=== PATIENT | female | born 1995 | race Caucasian/White ===

== ENCOUNTER 2020-11-14 11:14 | Emergency (ER) | payer OTHER ==
[2020-11-14 11:19] VITALS: TEMP 97.6; BMI 18.3
[2020-11-14] MEDS ORDERED: ONDANSETRON *ODT* 4 MG TABLET SL ONE (11:50)
[2020-11-14] MEDS ORDERED: ONDANSETRON *ODT* 4 MG TABLET ONE (11:59)
[2020-11-14] MEDS ORDERED: SODIUM CHLORIDE 1,000 ML IV STA (12:17)
[2020-11-14] MEDS ORDERED: ACETAMINOPHEN 1000 MG/100 ML VIAL (NON FORMULARY) IVPB ONE (12:17)
[2020-11-14] MEDS ORDERED: ACETAMINOPHEN INJECTION 100 ML IVPB ONE (12:20)
[2020-11-14 12:34] LABS: BASO % 0.3 % (0-2.0); EOS % 0.2 % (0-4.5); HEMATOCRIT 46.8 % (32.4-45.2); HEMOGLOBIN 15.9 GM/dL (10.7-15.3); LYMPH % 7.7 % (8-40); MCH 31.2 pg (25.7-33.7); MCHC 33.9 g/dl (32.0-36.0); MEAN CELL VOLUME 92.1 fl (80-96); MEAN PLT VOLUME 8.9 fl (7.5-11.1); MONO % 4.3 % (3.8-10.2); NEUT % 87.5 % (42.8-82.8); PLATELET COUNT 306 K/MM3 (134-434); RBC 5.08 M/mm3 (3.60-5.2); RDW 13.9 % (11.6-15.6); WHITE BLOOD COUNT 12.7 K/mm3 (4.0-10.0)
[2020-11-14 12:56] LABS: CALCIUM 11.4 mg/dL (8.5-10.1)
[2020-11-14 12:57] LABS: ALBUMIN 5.1 g/dl (3.4-5.0); BLOOD UREA NITROGEN 15.8 mg/dL (7-18); MAGNESIUM 2.2 mg/dL (1.8-2.4)
[2020-11-14 13:00] LABS: CREATININE 1.2 mg/dL (0.55-1.3)
[2020-11-14 13:01] LABS: BILIRUBIN,TOTAL 0.8 mg/dL (0.2-1)
[2020-11-14 13:02] LABS: TOT PROT 8.6 g/dl (6.4-8.2)
[2020-11-14 14:52] LABS: EPI CELLS >36 /uL (0-25.1); HYALINE CASTS 8 /uL (0-3.1); PH,URINE 6.5 (5.0-8.0); URINE APPEARANCE CLOUDY; URINE BACTERIA 1788 /uL (0-1359); URINE BILIRUBIN NEGATIVE (NEGATIVE); URINE COLOR DK YELLOW; URINE GLUCOSE (UA) NEGATIVE (NEGATIVE); URINE KETONE 2+ (NEGATIVE); URINE LEUK ESTERASE NEGATIVE (NEGATIVE); URINE NITRITE NEGATIVE (NEGATIVE); URINE PROTEIN 1+ (NEGATIVE); URINE WBC 54 /uL (0-25.8)
[2020-11-14 14:53] LABS: HCG,QUALITATIVE URINE Negative
[2020-11-14 15:15] VITALS: BP 134/76; PULSE 78
[2020-11-14 15:15] LABS: URINE RBC 26.5 /uL (0-23.9)
== END 2020-11-14 15:13 | disposition home or self-care (01) ==
LOC: JER 11:14
PROC: 3E0333Z Introduction of Anti-inflammatory into Peripheral Vein, Percutaneous Approach (ICD-10-PCS; principal; 2020-11-14)
PROC: 3E0337Z Introduction of Electrolytic and Water Balance Substance into Peripheral Vein, Percutaneous Approach (ICD-10-PCS; 2020-11-14)
DX: R11.2 Nausea with vomiting, unspecified (principal)
CPT/HCPCS: 36415; 80053; 81003; 83690; 83735; 84703; 85025; 87086; 99284-25; J0131; Q0162

== ENCOUNTER 2021-03-21 14:42 | Emergency (ER) | payer OTHER ==
[2021-03-21 14:57] VITALS: BP 114/69; PULSE 99; TEMP 97.6; BMI 18.3
[2021-03-21] MEDS ORDERED: IBUPROFEN 600 MG TABLET (FP) PO ONE ×2 (15:20→15:24)
== END 2021-03-21 17:08 | disposition home or self-care (01) ==
LOC: JERFT 14:42
DX: M79.641 Pain in right hand (principal)
CPT/HCPCS: 73110-TC-RT-FY; 73130-TC-RT-FY; 99283-25

== ENCOUNTER 2021-04-22 04:41 | Day surgery (SDC) | payer OTHER ==
[2021-04-18 13:35] VITALS: BMI 19.3
[2021-04-22] MEDS ORDERED: SUCCINYLCHOLINE CHLORIDE 200 MG/10 ML SYRINGE ONE (07:10)
[2021-04-22] MEDS ORDERED: MIDAZOLAM HCL 2 MG/2 ML SINGLE DOSE VIAL ONE (07:10)
[2021-04-22] MEDS ORDERED: PROPOFOL 20 ML ONE (07:10)
[2021-04-22] MEDS ORDERED: LIDOCAINE HCL 1%, 10 MG/ML (20ML VIAL) ONE ×2 (07:56→07:57)
[2021-04-22] MEDS ORDERED: BUPIVACAINE HCL/PF 0.5% (5MG/ML) 10 ML VIAL ONE (07:57)
[2021-04-22] MEDS ORDERED: BUPIVACAINE HCL/PF 0.25% (2.5MG/ML) 10 ML VIAL ONE (07:57)
[2021-04-22] MEDS ORDERED: ceFAZolin SODIUM 1 GM VIAL IVPB ONE (08:24)
[2021-04-22] MEDS ORDERED: ceFAZolin SODIUM 1 GM VIAL ONE (08:26)
[2021-04-22] MEDS ORDERED: DEXAMETHASONE SOD PHOSPHATE 4 MG/1 ML VIAL ONE (08:27)
[2021-04-22] MEDS ORDERED: ONDANSETRON 4 MG/2 ML VIAL ONE (08:27)
[2021-04-22] MEDS ORDERED: BUPIVACAINE HCL/PF 0.5% (5MG/ML) 10 ML VIAL IJ ONE (08:39)
[2021-04-22] MEDS ORDERED: LIDOCAINE HCL 1%, 10 MG/ML (20ML VIAL) NR ONE (08:39)
[2021-04-22] MEDS ORDERED: ONDANSETRON 4 MG/2 ML VIAL IVPUSH PRN (10:25)
[2021-04-22] MEDS ORDERED: oxyCODONE HCL 5 MG TABLET PO PRN ×2 (10:25)
[2021-04-22] MEDS ORDERED: LACTATED RINGERS SOLUTION 1,000 ML IV SCH (10:30)
[2021-04-22 11:30] VITALS: TEMP 96.4
[2021-04-22 13:19] VITALS: BP 115/52; PULSE 59
== END 2021-04-22 13:19 | disposition home or self-care (01) ==
LOC: JASU-SURG 04:41
PROVIDERS: ATTEND Orthopaedic Surgery
PROC: 0MQ70ZZ Repair Right Hand Bursa and Ligament, Open Approach (ICD-10-PCS; principal; 2021-04-22 08:00)
DX: S63.681A Other sprain of right thumb, initial encounter (principal); M25.641 Stiffness of right hand, not elsewhere classified; X58.XXXA Exposure to other specified factors, initial encounter; Y93.9 Activity, unspecified; Y92.9 Unspecified place or not applicable; Y99.9 Unspecified external cause status
CPT/HCPCS: 81025; 94760

== ENCOUNTER 2022-03-15 10:11 | Emergency (ER) | payer OTHER ==
[2022-03-15 10:17] VITALS: RESP 18; BMI 19.7
[2022-03-15 11:28] VITALS: BP 116/53; PULSE 60; TEMP 97.8
[2022-03-15 12:56] LABS: BASO % 0.5 % (0-2.0); EOS % 0.3 % (0-4.5); HEMATOCRIT 40.8 % (32.4-45.2); HEMOGLOBIN 13.7 GM/dL (10.7-15.3); LYMPH % 10.5 % (8-40); MCH 30.1 pg (25.7-33.7); MCHC 33.6 g/dl (32.0-36.0); MEAN CELL VOLUME 89.6 fl (80-96); MEAN PLT VOLUME 8.6 fl (7.5-11.1); NEUT % 81.7 % (42.8-82.8); PLATELET COUNT 229 10^3/uL (134-434); RBC 4.55 M/mm3 (3.60-5.2); RDW 13.4 % (11.6-15.6); WHITE BLOOD COUNT 11.1 K/mm3 (4.0-10.0)
[2022-03-15 13:07] LABS: CHLORIDE 109 mmol/L (98-107); SODIUM 140 mmol/L (136-145)
[2022-03-15 13:09] LABS: ANION GAP 5 MMOL/L (8-16); BLOOD UREA NITROGEN 15.3 mg/dL (7-18); CALCIUM 9.7 mg/dL (8.5-10.1); CO2 27 mmol/L (21-32); GLUCOSE,RANDOM 84 mg/dL (74-106)
[2022-03-15 13:10] LABS: ALBUMIN 4.1 g/dl (3.4-5.0)
[2022-03-15 13:12] LABS: SGPT/ALT 16 U/L (13-61)
[2022-03-15 13:13] LABS: SGOT/AST 9 U/L (15-37)
[2022-03-15 13:14] LABS: BILIRUBIN,TOTAL 0.4 mg/dL (0.2-1); TOT PROT 7.4 g/dl (6.4-8.2)
[2022-03-15 13:15] LABS: ALK PHOS 65 U/L (45-117)
== END 2022-03-15 15:49 | disposition home or self-care (01) ==
LOC: JER 10:11
DX: R07.0 Pain in throat (principal)
CPT/HCPCS: 36415; 70491-TC; 80053; 84702; 85025; 87070; 87086; 87491; 87591; 87651; 99285-25